=== PATIENT | male | born 1955 | race Hispanic/Latino ===

== ENCOUNTER 2018-09-14 09:41 | Emergency (ER) | payer OTHER ==
[~2018-09-14] VITALS: Ht 165.1 cm; Wt 65.0 kg
[~2018-09-14 09:41] MED LIST: NAPROSYN500 MG OR; NO HOME MEDS
[2018-09-14] MEDS ORDERED: PLAVIX75 MG PO (09:48)
[2018-09-14] MEDS ORDERED: ASPIRIN ADULT L81 MG PO (09:49)
[2018-09-14] MEDS ORDERED: LIPITOR10 M1 PO (09:49)
[2018-09-14] MEDS ORDERED: TORADOL PO (10:35)
[2018-09-14 10:40] VITALS: BP 132/76
== END 2018-09-14 10:44 | disposition home or self-care (01) ==
LOC: ED 09:41
DX: M25.561 Pain in right knee (principal); F17.200 Nicotine dependence, unspecified, uncomplicated; W18.30XA Fall on same level, unspecified, initial encounter

== ENCOUNTER 2019-09-14 16:06 | Emergency (ER) | payer OTHER ==
[~2019-09-14 16:06] MED LIST changes: +ASPIRIN ADULT L81 MG PO; +LIPITOR10 M1 PO; +PLAVIX75 MG PO; +TORADOL PO
== END 2019-09-14 17:12 | disposition left against medical advice (07) | DRG 951 ==
LOC: ED 16:06 → LWOBS 17:12 → ED 17:12
DX: Z53.21 Procedure and treatment not carried out due to patient leaving prior to being seen by health care provider (principal)

== ENCOUNTER 2019-11-07 15:43 | Emergency (ER) | payer OTHER ==
[~2019-11-07] VITALS: Ht 165.1 cm; Wt 65.0 kg
[2019-11-07 16:37] LABS: HEMATOCRIT 32.5 % (39.0-50.0); HEMOGLOBIN 10.5 g/dl (14.0-18.0); IMMATURE GRANULOCYTES 0.3 % (0.0-5.0); MEAN CORPUSCULAR HGB 31.3 pG CALC (26.0-32.0); MEAN CORPUSCULAR HGB CONC 32.3 g/dL CAL (32.0-36.0); NEUT# 4.24 thou/uL (1.82-7.42); RED BLOOD COUNT 3.35 mill/uL (4.70-6.10); RED CELL DISTRI WIDTH 14.1 % (11.5-15.5)
[2019-11-07 16:48] LABS: AMYLASE 60 u/l (30-110)
[2019-11-07 17:01] LABS: MYOGLOBIN 40 ng/mL (0 - 121)
[2019-11-07 17:21] LABS: ANION GAP 8 (6-22 (CALC)); BUN 11 mg/dL (8-23); BUN/CREATININE RATIO 14 (12-20 (CALC)); CARBON DIOXIDE 28 mmol/l (22-30); CHLORIDE 105 mmol/l (95-108); CREATININE 0.7 mg/dL (0.7-1.3); GFR > 60 ML/MIN (>=60 (CALC)); GFR FOR AFR.AMER. > 60 ML/MIN (>=60 (CALC)); POTASSIUM 3.5 mmol/l (3.5-5.1); SODIUM 137 mmol/l (137-146)
[2019-11-07] MEDS ORDERED: CYCLOBENZAPR5 MG PO (17:40)
[2019-11-07 17:44] VITALS: BP 127/75
== END 2019-11-07 17:47 | disposition left against medical advice (07) ==
LOC: ED 15:43
PROVIDERS: Family Medicine
DX: R07.9 Chest pain, unspecified (principal); M54.2 Cervicalgia; I25.2 Old myocardial infarction; F17.200 Nicotine dependence, unspecified, uncomplicated; Z95.5 Presence of coronary angioplasty implant and graft; Z91.19 Patient's noncompliance with other medical treatment and regimen

== ENCOUNTER 2020-03-16 06:54 | Emergency (ER) | payer OTHER ==
[~2020-03-16] VITALS: Ht 165.1 cm; Wt 69.0 kg
[~2020-03-16 06:54] MED LIST changes: +CYCLOBENZAPR5 MG PO
[2020-03-16] MEDS ORDERED: FAMCICLOVIR500 MG PO (07:32)
[2020-03-16] MEDS ORDERED: KEFLEX500 MG PO (07:32)
[2020-03-16] MEDS ORDERED: BENADRYL25 M1 PO (07:32)
[2020-03-16] MEDS ORDERED: ULTRAM50 MG PO (07:32)
[2020-03-16 07:50] VITALS: BP 127/71
== END 2020-03-16 07:50 | disposition home or self-care (01) ==
LOC: ED 06:54
DX: R21 Rash and other nonspecific skin eruption (principal); I25.2 Old myocardial infarction; Z95.5 Presence of coronary angioplasty implant and graft; F17.210 Nicotine dependence, cigarettes, uncomplicated

== ENCOUNTER 2020-07-04 08:47 | Emergency (ER) | payer MEDICARE, MEDICAID ==
[~2020-07-04 08:47] MED LIST changes: +BENADRYL25 M1 PO; +FAMCICLOVIR500 MG PO; +KEFLEX500 MG PO; +ULTRAM50 MG PO
[2020-07-04 09:20] LABS: HEMATOCRIT 37.9 % (39.0-50.0); HEMOGLOBIN 12.2 g/dl (14.0-18.0); IMMATURE GRANULOCYTES 0.2 % (0.0-5.0); MEAN CELL VOLUME 97.7 fL CALC (80.0-100.0); MEAN CORPUSCULAR HGB 31.4 pG CALC (26.0-32.0); MEAN CORPUSCULAR HGB CONC 32.2 g/dL CAL (32.0-36.0); NEUT# 4.16 thou/uL (1.82-7.42); RED BLOOD COUNT 3.88 mill/uL (4.70-6.10); RED CELL DISTRI WIDTH 13.8 % (11.5-15.5)
[2020-07-04 09:39] LABS: ALBUMIN 4.2 g/dL (3.2-5.0); ALKALINE PHOSPHATASE 83 u/l (38-126); ANION GAP 10 (6-22 (CALC)); BILIRUBIN, TOTAL 0.6 mg/dL (0.0-1.4); BUN 12 mg/dL (8-23); BUN/CREATININE RATIO 17 (12-20 (CALC)); CARBON DIOXIDE 27 mmol/l (22-30); CHLORIDE 104 mmol/l (95-108); CREATININE 0.7 mg/dL (0.7-1.3); GFR > 60 ML/MIN (>=60 (CALC)); GFR FOR AFR.AMER. > 60 ML/MIN (>=60 (CALC)); LIPASE 72 u/l (23-300); POTASSIUM 3.8 mmol/l (3.5-5.1); SGOT/AST 22 u/l (19-48); SODIUM 138 mmol/l (137-146); TOTAL PROTEIN 7.1 g/dL (6.3-8.2)
[2020-07-04 09:41] LABS: ACT PARTIAL THROMBO TIME 22.5 SECONDS (20.0-32.5); PROTHROMBIN TIME 9.9 SECONDS (9.0-12.5)
[2020-07-04 10:17] LABS: URINE BILIRUBIN - DIPSTICK NEGATIVE (NEGATIVE); URINE BLOOD DIPSTICK NEGATIVE (NEGATIVE); URINE COLOR YELLOW; URINE GLUCOSE - DIPSTICK NEGATIVE (NEGATIVE); URINE KETONE NEGATIVE (NEGATIVE); URINE LEUK ESTERASE NEGATIVE (NEGATIVE); URINE PROTEIN - DIPSTICK NEGATIVE (NEG-TRACE); URINE UROBILINOGEN - DIPSTICK 0.2 E.U./dL (0.2)
[2020-07-04 10:21] LABS: URINE NITRITE - DIPSTICK NEGATIVE (Negative)
[2020-07-04] MEDS ORDERED: FLEXERIL5 M1 PO (11:06)
[2020-07-04] MEDS ORDERED: ULTRAM50 MG PO (11:06)
[2020-07-04 11:20] VITALS: BP 141/80
== END 2020-07-04 11:23 | disposition home or self-care (01) ==
LOC: ED 08:47
DX: M54.6 Pain in thoracic spine (principal); R00.1 Bradycardia, unspecified; I25.2 Old myocardial infarction; F17.210 Nicotine dependence, cigarettes, uncomplicated; Z95.5 Presence of coronary angioplasty implant and graft
CPT/HCPCS: Q9967

== ENCOUNTER 2020-09-12 13:05 | Emergency (ER) | payer MEDICARE, MEDICAID ==
[~2020-09-12] VITALS: Ht 165.1 cm; Wt 77.0 kg
[~2020-09-12 13:05] MED LIST changes: +FLEXERIL5 M1 PO
[2020-09-12 13:44] LABS: HEMATOCRIT 37.3 % (39.0-50.0); HEMOGLOBIN 12.2 g/dl (14.0-18.0); IMMATURE GRANULOCYTES 0.1 % (0.0-5.0); MEAN CELL VOLUME 96.6 fL CALC (80.0-100.0); MEAN CORPUSCULAR HGB 31.6 pG CALC (26.0-32.0); MEAN CORPUSCULAR HGB CONC 32.7 g/dL CAL (32.0-36.0); NEUT# 6.28 thou/uL (1.82-7.42); RED BLOOD COUNT 3.86 mill/uL (4.70-6.10); RED CELL DISTRI WIDTH 14.3 % (11.5-15.5)
[2020-09-12 13:59] LABS: ACT PARTIAL THROMBO TIME 21.9 SECONDS (20.0-32.5); PROTHROMBIN TIME 10.2 SECONDS (9.0-12.5)
[2020-09-12 14:02] LABS: ALBUMIN 4.2 g/dL (3.2-5.0); ALKALINE PHOSPHATASE 71 u/l (38-126); AMYLASE 101 u/l (30-110); ANION GAP 11 (6-22 (CALC)); BILIRUBIN, TOTAL 0.8 mg/dL (0.0-1.4); BUN 9 mg/dL (8-23); BUN/CREATININE RATIO 12 (12-20 (CALC)); CARBON DIOXIDE 27 mmol/l (22-30); CHLORIDE 104 mmol/l (95-108); CREATININE 0.8 mg/dL (0.7-1.3); GFR > 60 ML/MIN (>=60 (CALC)); GFR FOR AFR.AMER. > 60 ML/MIN (>=60 (CALC)); LIPASE 57 u/l (23-300); POTASSIUM 3.5 mmol/l (3.5-5.1); SGOT/AST 21 u/l (19-48); SODIUM 139 mmol/l (137-146); TOTAL PROTEIN 7.4 g/dL (6.3-8.2)
[2020-09-12 15:26] VITALS: BP 118/64
== END 2020-09-12 15:30 | disposition left against medical advice (07) ==
LOC: ED 13:05
DX: R07.9 Chest pain, unspecified (principal); I25.2 Old myocardial infarction; F17.200 Nicotine dependence, unspecified, uncomplicated; Z91.19 Patient's noncompliance with other medical treatment and regimen; Z95.5 Presence of coronary angioplasty implant and graft

== ENCOUNTER 2021-03-06 12:52 | Emergency (ER) | payer MEDICARE, MEDICAID ==
[~2021-03-06] VITALS: Ht 165.1 cm; Wt 69.0 kg
[2021-03-06] MEDS ORDERED: MOTRIN800 MG PO (14:53)
[2021-03-06 15:25] VITALS: BP 136/87
== END 2021-03-06 15:25 | disposition home or self-care (01) ==
LOC: ED 12:52
DX: S80.02XA Contusion of left knee, initial encounter (principal); I25.2 Old myocardial infarction; F17.200 Nicotine dependence, unspecified, uncomplicated; W22.09XA Striking against other stationary object, initial encounter; Y92.009 Unspecified place in unspecified non-institutional (private) residence as the place of occurrence of the external cause; Z95.5 Presence of coronary angioplasty implant and graft

== ENCOUNTER 2022-10-13 07:54 | Emergency (ER) | payer MEDICARE, MEDICAID ==
[2022-10-13] VITALS (15 sets, daily range): BP systolic 107–133; BP diastolic 66–88
[~2022-10-13] VITALS: Ht 165.1 cm; Wt 68.0 kg
[~2022-10-13 07:54] MED LIST changes: +MOTRIN800 MG PO
[2022-10-13 09:01] LABS: ALBUMIN 4.1 g/dL (3.2-5.0); ALKALINE PHOSPHATASE 79 u/l (38-126); ANION GAP 10 (6-22 (CALC)); BILIRUBIN, TOTAL 0.7 mg/dL (0.2-1.3); BUN 18 mg/dL (8-23); BUN/CREATININE RATIO 20 (12-20 (CALC)); CARBON DIOXIDE 27 mmol/l (22-30); CHLORIDE 106 mmol/l (95-108); CREATININE 0.9 mg/dL (0.7-1.3); GFR FOR AFR.AMER. > 60 ML/MIN (>=60 (CALC)); GFR OTHER RACES > 60 ML/MIN (>=60 (CALC)); POTASSIUM 4.2 mmol/l (3.5-5.1); SGOT/AST 23 u/l (19-48); SODIUM 140 mmol/l (137-146); TOTAL PROTEIN 7.2 g/dL (6.3-8.2)
[2022-10-13 09:04] LABS: D-DIMER 0.26 mg/L (0.19-0.60)
[2022-10-13 09:05] LABS: BASO% 0.9 % (0-3); EOS% 5.9 % (0-8); HEMATOCRIT 36.9 % (39.0-50.0); HEMOGLOBIN 11.9 g/dl (14.0-18.0); LYMPH% 41.1 % (15-41); MEAN CELL VOLUME 98.4 fL CALC (80.0-100.0); MEAN CORPUSCULAR HGB 31.7 pG CALC (26.0-32.0); MEAN CORPUSCULAR HGB CONC 32.2 g/dL CAL (32.0-36.0); MONO% 10.2 % (2-13); NEUT# 2.79 thou/uL (1.82-7.42); NEUT% 41.9 % (42-76); RED BLOOD COUNT 3.75 mill/uL (4.70-6.10); RED CELL DISTRI WIDTH 13.9 % (11.5-15.5)
[2022-10-13 09:09] LABS: ACT PARTIAL THROMBO TIME 23.9 SECONDS (20.0-32.5); PROTHROMBIN TIME 9.9 SECONDS (9.0-12.5)
== END 2022-10-13 11:18 | disposition home or self-care (01) ==
LOC: ED 07:54
PROVIDERS: Family Medicine
DX: I51.4 Myocarditis, unspecified (principal); I25.2 Old myocardial infarction; F17.210 Nicotine dependence, cigarettes, uncomplicated; Z95.5 Presence of coronary angioplasty implant and graft

== ENCOUNTER 2023-09-19 09:10 | Emergency (ER) | payer MEDICARE, MEDICAID ==
[~2023-09-19] VITALS: Ht 165.1 cm; Wt 68.0 kg
[~2023-09-19 09:10] MED LIST changes: +CEPHALEXIN500 M1 PO; +TRAMADOL HYDROC50 M1 PO
[2023-09-19 09:18] VITALS: BP 153/67
[2023-09-19 09:31] VITALS: BP 133/68
[2023-09-19 09:45] VITALS: BP 129/81
[2023-09-19] MEDS ORDERED: Diph, Acellular Pertussis, Tet 0.5 ML/VIAL (Tdap) SDV IM ONE (09:45)
[2023-09-19 10:01] VITALS: BP 117/73
[2023-09-19] MEDS ORDERED: TRAMADOL HYDROC50 M1 PO (10:12)
[2023-09-19] MEDS ORDERED: CEPHALEXIN500 M1 PO (10:12)
[2023-09-19 10:16] VITALS: BP 117/73
== END 2023-09-19 10:21 | disposition home or self-care (01) ==
LOC: ED 09:10
DX: S80.01XA Contusion of right knee, initial encounter (principal); S80.211A Abrasion, right knee, initial encounter; S90.121A Contusion of right lesser toe(s) without damage to nail, initial encounter; I10 Essential (primary) hypertension; I25.2 Old myocardial infarction; F17.200 Nicotine dependence, unspecified, uncomplicated; V28.01XA Electric (assisted) bicycle driver injured in noncollision transport accident in nontraffic accident, initial encounter; Y93.55 Activity, bike riding; Y92.009 Unspecified place in unspecified non-institutional (private) residence as the place of occurrence of the external cause; Z95.5 Presence of coronary angioplasty implant and graft